=== PATIENT | male | born 1990 | race African-American/Black ===

== ENCOUNTER 2024-06-29 09:51 | Inpatient (IN) ==
[2024-06-29 10:23] VITALS: BMI 25.7
--- NOTE | 2024-06-29 10:31 | DR.ABDMALE ---
HPI Time seen Time Seen by Provider: 06/29/24 10:29 Complaint Chief Complaint Doctors Comments: This patient had a syncopal episode by having a bowel movement on yesterday. He was seen by the medical was staff at the attention center this morning and he was given he was treated with Colace and milk of magnesia and he went to the day room when he also collapsed there he was found to have altered mental status the patient was given Narcan 2 doses there upon arrival in the emergency room he states he has had been nauseated vomiting dizzy and some periumbilical pain he states he had not had a bowel movement in 4 days. Chief Complaint:: [facility] staff reports that yesterday pt had syncopal epidose while straining to have a bowel movemnt. Pt did come to medical this morning with c/o constipation and was treated with colace and milk of magnesia. pt collapsed in dayroom this morning and was found to have altered mental status. Pt received Narcan x 2 doses. Upon arrival to ED pt has c/o 4 days of nausea, vomiting, dizziness and periumbilical tight squeezing constant pain that radiated to the RUQ. Pt also states that he hasn't had a bowel movement in 3-4 days and normally goes every day. COVID-19 Coronavirus risk:travel/contact w/high risk person: No Has patient experienced Coronavirus symptoms: No Mode of arrival Mode of Arrival: Wheelchair Timing Onset of Chief Complaint: 06/29/24 PMH PMH Past Medical History: Yes Past Medical History: Depression Past Surgical History: Yes Surgical History: Ortho Surgery Past Surgical History Comment: right hand surgery Family History History of Family Medical Conditions: Yes Family Medical History: Diabetes Mellitus, Heart Failure and Hypertension Social History Does patient currently use any type of tobacco product: No Have you used tobacco products in the last 12 months: No Type of Tobacco Use: None Does any household member use tobacco: No Alcohol Use: None Do you use any recreational Drugs:: No Lives With: Other Lives Where: [facility] Travel Risk Coronavirus risk:travel/contact w/high risk person: No Has patient experienced Coronavirus symptoms: No Infectious screening In the last 2 months have you had wt loss of >10#?: NO Have you had fever, night sweats or hemotysis?: No Have you traveled outside the country in the last 6 months?: No Isolation: Standard ROS Review of Systems Constitutional: Other (Abdominal pain with nausea vomiting constipation) Eyes: No Symptoms Reported ENTM: No Symptoms Reported Respiratoy: No Symptoms Reported Cardiovascular: No Symptoms Reported Gastrointestinal/Abdominal: Abdominal Pain, Constipation, Nausea and Vomiting Genitourinary: No Symptoms Reported Neurological: Other (syncopal episodes) Musculoskeletal: No Symptoms Reported Integumentary: No Symptoms Reported Hematologic/Lymphatic: No Symptoms Reported Endocrine: No Symptoms Reported Psychiatric: No Symptoms Reported PE Vital Signs Vital Signs: Temp Pulse Resp BP Pulse Ox O2 Del Method 06/29/24 15:00 113 H 20 06/29/24 14:45 113 H 21 06/29/24 14:30 114 H 23 06/29/24 14:15 118 H 21 06/29/24 14:00 120 H 20 06/29/24 13:45 113 H 22 06/29/24 13:37 112 H 33 H 06/29/24 14:45 20 06/29/24 12:00 105 H 21 06/29/24 11:45 108 H 16 98 06/29/24 11:43 112 H 99 06/29/24 11:20 109 H 17 99 06/29/24 11:20 153/84 06/29/24 11:19 112 H 99 06/29/24 10:45 110 H 31 H 06/29/24 10:30 145/82 06/29/24 10:30 104 H 22 06/29/24 10:15 103 H 23 100 06/29/24 10:00 140/81 06/29/24 10:00 100 H 15 100 06/29/24 09:58 104 H 25 H 100 06/29/24 10:13 97.6 F 105 H 20 140/81 99 Room Air General Limitations: No Limitations General Appearance: Alert and In Distress (moderate distress) Head Head Exam: Atraumatic and Normocephalic Eyes Eye exam: Normal Appearance, PERRL and EOMI ENT ENT Exam: Normal Exam, Normal Oropharynx and Normal External Ear Exam Neck Neck Exam: Normal Inspection and Full ROM Chest Chest Inspection: Normal Inspection and Symmetric Chest Wall Rise Respiratory Respiratory Exam: Normal Lung Sounds Bilat Cardiovascular Cardiovascular Exam: Regular Rate and Normal Rhythm Abdominal Exam Abdominal Exam: Normal Inspection, Normal Bowel Sounds, Soft and Distention (mild) Rectal Rectal Exam: Deferred Back Back Exam: Normal Inspection and Full ROM Extremeties Extremities Exam: Normal Inspection Neurologic Neurological Exam: Alert, Oriented X3 and CN II-XII Intact Psychiatric Psychiatric Exam: Flat Affect Skin Skin Exam: Warm, Dry and Intact MDM Differential Diagnosis Differential Diagnosis: Bowel Obstruction, Constipation, Gastroenteritis and Urinary tract infection Other differential diagnosis: vasovagal syncope COURSE Treatment Treatment: This patient remained relatively stable during ER evaluation. We did do a CT scan abdomen pelvis that was negative we did a CT scan of his brain that was negative. We did do metabolic panel that showed his BUN was 61 and crea tinine was 3.78 and his GFR was 34. He did of CBC and his WBC was 12.7 hemoglobin 13.8 hematocrit 40.3 platelets were 324. Since the patient has some acute renal sufficiency we did give the patient a 1 L bolus of normal saline in the ER and will be given an additional bolus of normal saline in the ER. We spoke to the on-call physician Dr. Seaman he agreed to set the patient for admission for further evaluation and treatment of his acute renal insufficiency. This patient was told of the intent to admit and was agreeable to the admission. This patient will also be covered with Zosyn 3.375 g IV every 8 hours. This patient was admitted to a full admit to Dr. Seaman. ROR Labs Reviewed Laboratory Results Reviewed?: Yes 06/29/24 11:17 06/29/24 12:03 Laboratory: WBC 12.7 X10^3/uL (3.6-10.0) H 06/29/24 11:17 RBC 4.97 X10^6/uL (4.7-6.0) 06/29/24 11:17 Hgb 13.8 g/dL (13.5-18.0) 06/29/24 11:17 Hct 40.3 % (42.0-54.0) L 06/29/24 11:17 MCV 81.2 fL (80.0-100.0) 06/29/24 11:17 MCH 27.8 pg (27.0-34.0) 06/29/24 11:17 MCHC 34.2 g/dL (33.0-35.0) 06/29/24 11:17 RDW 12.9 % (11.6-16.5) 06/29/24 11:17 Plt Count 325 X10^3/uL (150.0-450.0) 06/29/24 11:17 MPV 9.1 fL (7.4-11.0) 06/29/24 11:17 Neut % (Auto) 69.9 % (42.0-75.0) 06/29/24 11:17 Lymph % (Auto) 20.1 % (21.0-51.0) L 06/29/24 11:17 [place] % (Auto) 8.2 % (0.0-13.0) 06/29/24 11:17 Eos % (Auto) 1.1 % (0.9-2.9) 06/29/24 11:17 Baso % (Auto) 0.7 % (0.2-1.0) 06/29/24 11:17 Neut # (Auto) 8.9 x10^3/uL (2.2-4.8) H 06/29/24 11:17 Lymph # (Auto) 2.6 X10^3/uL (1.3-2.9) 06/29/24 11:17 [place] # (Auto) 1.0 x10^3/uL (0.3-0.8) H 06/29/24 11:17 Eos # (Auto) 0.1 x10^3/uL (0.0-0.2) 06/29/24 11:17 Baso # (Auto) 0.1 X10^3/uL (0.0-0.1) 06/29/24 11:17 Absolute Nucleated RBC 0.1 /100WBC 06/29/24 11:17 PT 14.2 SECONDS (11.8-14.3) 06/29/24 12:03 INR Target Range - 06/29/24 12:03 INR 1.12 (0.8-1.3) 06/29/24 12:03 Sodium 131 mmol/L (136-145) L 06/29/24 12:03 Corrected Sodium TNP 06/29/24 12:03 Potassium 3.7 mmol/L (3.5-5.1) 06/29/24 12:03 Chloride 93 mmol/L (98-107) L 06/29/24 12:03 Carbon Dioxide 21.9 mmol/L (21-32) 06/29/24 12:03 BUN 61 mg/dL (7-18) H 06/29/24 12:03 Creatinine 2.78 mg/dL (0.70-1.30) H 06/29/24 12:03 Est GFR (MDRD) Af Amer 34 (>60) L 06/29/24 12:03 Est GFR (MDRD) Non-Af 28 (>60) L 06/29/24 12:03 Glucose 104 mg/dL (65-99) H 06/29/24 12:03 Calcium 9.6 mg/dL (8.5-10.1) 06/29/24 12:03 Corrected Calcium TNP 06/29/24 12:03 Total Bilirubin 1.30 mg/dL (0.2-1.0) H 06/29/24 12:03 AST 106 Units/L (15-37) H 06/29/24 12:03 ALT 67 Units/L (12-78) 06/29/24 12:03 Alkaline Phosphatase 63 Units/L (46-116) 06/29/24 12:03 Total Protein 9.1 g/dL (6.4-8.2) H 06/29/24 12:03 Albumin 4.7 g/dL (3.4-5.0) 06/29/24 12:03 Globulin 4.4 g/dL (2.5-4.5) 06/29/24 12:03 Albumin/Globulin Ratio 1.1 Ratio (1.1-2.1) 06/29/24 12:03 Specimen Type Random urine 06/29/24 11:10 Urine Color Straw (YELLOW) 06/29/24 11:10 Urine Appearance Clear (CLEAR) 06/29/24 11:10 Urine pH 7.0 (5.0 - 8.0) 06/29/24 11:10 Ur Specific [place] 1.010 (1.000-1.030) 06/29/24 11:10 Urine Protein Negative (NEGATIVE) 06/29/24 11:10 Urine Glucose (UA) Negative (NEGATIVE) 06/29/24 11:10 Urine Ketones Negative (NEGATIVE) 06/29/24 11:10 Urine Blood Negative (NEGATIVE) 06/29/24 11:10 Urine Nitrite Negative (NEGATIVE) 06/29/24 11:10 Urine Bilirubin Negative (NEGATIVE) 06/29/24 11:10 Urine Urobilinogen Normal (NORMAL) 06/29/24 11:10 Ur Leukocyte Esterase Negative (NEGATIVE) 06/29/24 11:10 Opioid Opioid Risk Tool Age (Marcello box if 16-45): Yes History of Preadolescent Sexual Abuse: No Total: 1 Total Score Risk Category: Low Risk Copyright: Billy JENKINS predicting aberrant behaviors Discharge Plan Diagnosis Discharge Problem: Acute renal insufficiency, Dehydration Discharge Plan Patient Disposition: ADMITTED INPATIENT Condition: Stable Prescriptions: No Action docusate sodium [Colace] 100 mg Capsule 100 mg PO BID Health Concerns: Post Hospitalization: new medications and changes needed to prevent readmission or further decline. Pt educated and given instructions on all concerns. Plan of Treatment: Continue with present treatment and follow up plan. Pt is to keep follow up appointment as instructed and take medications as ordered. Orders to Discharge Patient Discharge Orders: Discharge (Routine); Ordered 06/29/24 Ordered By: Armani Murry Transfer (Routine); Ordered 06/29/24 Ordered By: Armani Murry Follow ups/Referrals Follow ups/Referrals: NFD,None [Primary Care Provider] - 3 days Instructions Stand Alone Forms: Post Hospital Follow Up Care
[2024-06-29 11:31] LABS: BASOPHILS # (AUTO) 0.1 X10^3/uL (0.0-0.1); BASOPHILS % (AUTO) 0.7 % (0.2-1.0); EOSINOPHILS # (AUTO) 0.1 x10^3/uL (0.0-0.2); EOSINOPHILS % (AUTO) 1.1 % (0.9-2.9); HEMATOCRIT 40.3 % (42.0-54.0); HEMOGLOBIN 13.8 g/dL (13.5-18.0); LYMPHOCYTES # (AUTO) 2.6 X10^3/uL (1.3-2.9); LYMPHOCYTES % (AUTO) 20.1 % (21.0-51.0); MEAN CORPUSCULAR HEMOGLOBIN 27.8 pg (27.0-34.0); MEAN CORPUSCULAR HGB CONC 34.2 g/dL (33.0-35.0); MEAN CORPUSCULAR VOLUME 81.2 fL (80.0-100.0); MEAN PLATELET VOLUME 9.1 fL (7.4-11.0); MONOCYTES % (AUTO) 8.2 % (0.0-13.0); NEUTROPHILS # (AUTO) 8.9 x10^3/uL (2.2-4.8); NEUTROPHILS % (AUTO) 69.9 % (42.0-75.0); PLATELET COUNT 325 X10^3/uL (150.0-450.0); RED BLOOD COUNT 4.97 X10^6/uL (4.7-6.0); RED CELL DISTRIBUTION WIDTH 12.9 % (11.6-16.5); WHITE BLOOD COUNT 12.7 X10^3/uL (3.6-10.0)
[2024-06-29 11:38] LABS: INR 1.12 (0.8-1.3)
[2024-06-29 11:41] LABS: BILIRUBIN,URINE NEGATIVE (NEGATIVE); BLOOD/HEMOGLOBIN,URINE NEGATIVE (NEGATIVE); GLUCOSE, URINE NEGATIVE (NEGATIVE); KETONES,URINE NEGATIVE (NEGATIVE); LEUKOCYTE ESTERASE ,URINE NEGATIVE (NEGATIVE); NITRITES,URINE NEGATIVE (NEGATIVE); PROTEIN,URINE NEGATIVE (NEGATIVE); UROBILINOGEN,URINE NORMAL (NORMAL)
[2024-06-29 11:43] LABS: APPEARANCE,URINE CLEAR (CLEAR); COLOR,URINE STRAW (YELLOW)
[2024-06-29 12:32] LABS: ALANINE AMINOTRANSFERASE 67 Units/L (12-78); ALBUMIN 4.7 g/dL (3.4-5.0); ALKALINE PHOSPHATASE 63 Units/L (46-116); ASPARTATE AMINO TRANSFERASE 106 Units/L (15-37); BLOOD UREA NITROGEN 61 mg/dL (7-18); CALCIUM 9.6 mg/dL (8.5-10.1); CARBON DIOXIDE 21.9 mmol/L (21-32); CHLORIDE 93 mmol/L (98-107); CREATININE 2.78 mg/dL (0.70-1.30); GLUCOSE 104 mg/dL (65-99); POTASSIUM 3.7 mmol/L (3.5-5.1); SODIUM 131 mmol/L (136-145); TOTAL PROTEIN 9.1 g/dL (6.4-8.2); eGFR NON BLACK RACES 28 (>60)
--- NOTE | 2024-06-29 12:53 | CT ---
EXAM:BRAIN W/O CONHISTORY:SYNCOPAL EPISDOE ;COMPARISON:None.TECHNIQUE:Axial CT of the head is performed from the base of the skull through the vertex without contrast . Multiplaner reformats are generated from the original axial data.FINDINGS:There is no evidence of an acute intracranial hemorrhage or extra-axial fluid collection. There is no mass effect, midline shift, or evidence of cerebral edema. The ventricular size is normal. Cortical toro-white matter differentiation is maintained without sulcal effacement. There is no evidence of an acute stage, large artery territorial infarction.The calvarium is intact. The paranasal sinuses and mastoid air cells are predominantly clear aside from mild polypoid mucosal thickening of the bilateral maxillary sinus chambers. No air-fluid levels are demonstrated. The cerebellar tonsils are normal in position. No suprasellar asymmetry is identified.IMPRESSION:No acute intracranial abnormalitiesRadiation dose reduction was achieved through individualized adjustment of kVP and/or mA, through adaptive statistical iterative reconstruction, and/or through automated tube current modulation.THIS IS AN ELECTRONICALLY VERIFIED FINAL REPORT06/29/2024 12:49 PM - Electronically signed by Erick Chun MD
--- NOTE | 2024-06-29 12:56 | CT ---
EXAM:ABDOMEN/PELVIS W/O CONHISTORY:ABD PAIN, NAUSEA, VOMITING;COMPARISON:None.TECHNIQUE:Multi ple axial images of the abdomen and pelvis were obtained from the lung bases to the pubic symphysis without the administration of IV contrast. Dose reduction techniques including Automated Exposure Control (AEC) and adjustment of mA and kV were utilized.FINDINGS:Study quality is degraded by patient associated motion artifact.The visualized portions of the lung bases are clear.The liver is normal in attenuation for noncontrast exam. There is no biliary dilatation identified.No radiopaque gallstones or acute inflammatory changes of the gallbladder.The spleen is average size.No inflammatory changes of the pancreas are identified.The adrenal glands are symmetric in size and overall morphology.No radiopaque renal calculi or evidence of obstruction of the right or left kidney. The bilateral ureters are decompressed to the level of the urinary bladder.No significant mesenteric lymphadenopathy or stranding can be observed. No free fluid or free air is seen within the abdomen.The aorta is normal in caliber.No bowel wall thickening or bowel dilatation is present. No aggressively thickened or acutely inflamed bowel segments are identified, within limitations of a noncontrast CT.The appendix is normal in caliber and without inflammatory change.The urinary bladder is grossly unremarkable.Normal-sized prostate gland. No pathologic free fluid or lymphadenopathy associated with pelvis. Tiny fat containing periumbilical hernia site without complication.No aggressive bony lesions or acute osseous abnormalities. Mild scoliotic curvature observed. Chronic superior endplate Schmorl's node defect at T12 is observed.IMPRESSION:No acute abnormalities identified, within limitations of a noncontrast CT degraded by motion artifact.THIS IS AN ELECTRONICALLY VERIFIED FINAL REPORT06/29/2024 12:53 PM - Electronically signed by Erick Chun MD
[2024-06-29] MEDS: NS 1,000 ML IV 1,000 ML IV ONE (13:38)
[2024-06-29] MEDS ORDERED: ZOFRAN INJ 4 MG VIAL IVP PRN (16:12)
[2024-06-29] MEDS ORDERED: NS 250 ML IV 25 ML IV PRN (16:12)
[2024-06-29] MEDS: ZOSYN VIAL 2.25 GRAMS 2.25 G in NS 100 ML IV 100 ML IV SCH (16:44)
[2024-06-29] MEDS ORDERED: ZOSYN VIAL 3.375 GRAMS 3.375 G in NS 100 ML IV 100 ML IV SCH (17:00)
[2024-06-29] MEDS: NS 1,000 ML IV 1,000 ML ONE (17:06)
[2024-06-29] MEDS: D5 NS 1,000 ML IV 1,000 ML IV SCH (17:52)
[2024-06-30] MEDS: ZOSYN VIAL 3.375 GRAMS 3.375 G in NS 100 ML IV 100 ML IV SCH (00:14)
[2024-06-30] MEDS: NS 250 ML IV 25 ML IV PRN (00:15)
[2024-06-30 06:18] LABS: BASOPHILS # (AUTO) 0.1 X10^3/uL (0.0-0.1); BASOPHILS % (AUTO) 0.9 % (0.2-1.0); EOSINOPHILS # (AUTO) 0.4 x10^3/uL (0.0-0.2); EOSINOPHILS % (AUTO) 4.6 % (0.9-2.9); HEMATOCRIT 33.6 % (42.0-54.0); HEMOGLOBIN 11.5 g/dL (13.5-18.0); LYMPHOCYTES # (AUTO) 1.8 X10^3/uL (1.3-2.9); LYMPHOCYTES % (AUTO) 20.7 % (21.0-51.0); MEAN CORPUSCULAR HEMOGLOBIN 27.7 pg (27.0-34.0); MEAN CORPUSCULAR HGB CONC 34.2 g/dL (33.0-35.0); MEAN CORPUSCULAR VOLUME 81.2 fL (80.0-100.0); MEAN PLATELET VOLUME 8.8 fL (7.4-11.0); MONOCYTES # (AUTO) 0.9 x10^3/uL (0.3-0.8); MONOCYTES % (AUTO) 10.4 % (0.0-13.0); NEUTROPHILS # (AUTO) 5.6 x10^3/uL (2.2-4.8); NEUTROPHILS % (AUTO) 63.4 % (42.0-75.0); PLATELET COUNT 247 X10^3/uL (150.0-450.0); RED BLOOD COUNT 4.14 X10^6/uL (4.7-6.0); RED CELL DISTRIBUTION WIDTH 13.1 % (11.6-16.5); WHITE BLOOD COUNT 8.7 X10^3/uL (3.6-10.0)
[2024-06-30 06:25] LABS: ALBUMIN 3.3 g/dL (3.4-5.0); CALCIUM 8.3 mg/dL (8.5-10.1); CARBON DIOXIDE 28.4 mmol/L (21-32); COR CA(FOR HYPOALB) 8.9 mg/dL (8.5-10.1); CREATININE 1.72 mg/dL (0.70-1.30); POTASSIUM 4.5 mmol/L (3.5-5.1); TOTAL PROTEIN 6.8 g/dL (6.4-8.2)
[2024-06-30] MEDS: MILK OF MAGNESIA PO SCH (12:13)
[2024-06-30] MEDS: COLACE CAP 100 MG PO SCH (12:14)
--- NOTE | 2024-06-30 13:49 | DR.H&P ---
H&P History & Physical for Day of: H&P Date: 06/30/24 Chief Complaint Chief Complaint: syncope History of Present Illness History of Present Illness: Patient seen for admission rounding with nurse and attendance at bedside. Patient was at the [facility] when he experienced 2 syncopal episodes. 1 was after a bowel movement the other was in the dayroom area. The first syncopal episode occurred after a BM. He was evaluated by medical staff there and placed on stool softeners and milk of magnesia. He then experienced another syncopal episode and was sent here. He is experienced 4 to 5 days of nausea, vomiting, and decreased p.o. intake. In the ER he was found to have an acute kidney injury with leukocytosis. This morning his serum creatinine is improved with resolution of the leukocytosis. He also dropped his platelet count and hemoglobin. Vitals have improved. He reports he has nausea and vomiting are much improved and he wants to eat now. CT brain and abdomen/pelvis were benign. Vitals have been stable. ROS: 12 point review of systems negative except as noted in HPI. Vitals reviewed. PE: Well-developed, well-nourished male in no acute distress. Head NCAT. X recommends grossly normal. Hearing intact conversation. CN II through XII grossly normal. Heart regular rate and rhythm. Lungs are clear with good respiratory effort and speaking in full sentences. Belly is soft, nontender, nondistended with bowel sounds present. No organomegaly appreciated. Skin appropriate color and turgor. Moves all extremities equally well with no edema. Mood and affect appropriate. Past Medical History Past Medical History: Depression Past Surgical History Surgical History: Ortho Surgery Family History Family Medical History: Diabetes Mellitus, Heart Failure and Hypertension Social History Does patient currently use any type of tobacco product: No Have you used tobacco products in the last 12 months: No Type of Tobacco Use: None Does any household member use tobacco: No Alcohol Use: None Medications Home Medications: Home Medications Medication Instructions Recorded Confirmed Type docusate sodium 100 mg capsule 100 mg PO BID 06/29/24 06/29/24 History (Colace) Allergies Allergies Allergy/AdvReac Type Severity Reaction Status Date / Time bee pollen Allergy Verified 06/29/24 10:25 insect venom Allergy Verified 06/29/24 10:25 poison zay extract Allergy Verified 06/29/24 10:25 poison oak extract Allergy Verified 06/29/24 10:25 poison sumac extract Allergy Verified 06/29/24 10:25 Labs 06/30/24 05:58 06/30/24 05:58 Labs: Laboratory WBC 8.7 X10^3/uL (3.6-10.0) 06/30/24 05:58 RBC 4.14 X10^6/uL (4.7-6.0) L 06/30/24 05:58 Hgb 11.5 g/dL (13.5-18.0) L D 06/30/24 05:58 Hct 33.6 % (42.0-54.0) L 06/30/24 05:58 MCV 81.2 fL (80.0-100.0) 06/30/24 05:58 MCH 27.7 pg (27.0-34.0) 06/30/24 05:58 MCHC 34.2 g/dL (33.0-35.0) 06/30/24 05:58 RDW 13.1 % (11.6-16.5) 06/30/24 05:58 Plt Count 247 X10^3/uL (150.0-450.0) 06/30/24 05:58 MPV 8.8 fL (7.4-11.0) 06/30/24 05:58 Neut % (Auto) 63.4 % (42.0-75.0) 06/30/24 05:58 Lymph % (Auto) 20.7 % (21.0-51.0) L 06/30/24 05:58 [place] % (Auto) 10.4 % (0.0-13.0) 06/30/24 05:58 Eos % (Auto) 4.6 % (0.9-2.9) H 06/30/24 05:58 Baso % (Auto) 0.9 % (0.2-1.0) 06/30/24 05:58 Neut # (Auto) 5.6 x10^3/uL (2.2-4.8) H 06/30/24 05:58 Lymph # (Auto) 1.8 X10^3/uL (1.3-2.9) 06/30/24 05:58 [place] # (Auto) 0.9 x10^3/uL (0.3-0.8) H 06/30/24 05:58 Eos # (Auto) 0.4 x10^3/uL (0.0-0.2) H 06/30/24 05:58 Baso # (Auto) 0.1 X10^3/uL (0.0-0.1) 06/30/24 05:58 Absolute Nucleated RBC 0.1 /100WBC 06/30/24 05:58 PT 14.2 SECONDS (11.8-14.3) 06/29/24 12:03 INR Target Range - 06/29/24 12:03 INR 1.12 (0.8-1.3) 06/29/24 12:03 Sodium 137 mmol/L (136-145) 06/30/24 05:58 Corrected Sodium 137 mmol/L (136-145) 06/30/24 05:58 Potassium 4.5 mmol/L (3.5-5.1) 06/30/24 05:58 Chloride 103 mmol/L (98-107) 06/30/24 05:58 Carbon Dioxide 28.4 mmol/L (21-32) 06/30/24 05:58 BUN 37 mg/dL (7-18) H 06/30/24 05:58 Creatinine 1.72 mg/dL (0.70-1.30) H 06/30/24 05:58 Est GFR (MDRD) Af Amer 59 (>60) 06/30/24 05:58 Est GFR (MDRD) Non-Af 49 (>60) L 06/30/24 05:58 Glucose 118 mg/dL (65-99) H 06/30/24 05:58 Calcium 8.3 mg/dL (8.5-10.1) L 06/30/24 05:58 Corrected Calcium 8.9 mg/dL (8.5-10.1) 06/30/24 05:58 Total Bilirubin 1.20 mg/dL (0.2-1.0) H 06/30/24 05:58 AST 74 Units/L (15-37) H 06/30/24 05:58 ALT 50 Units/L (12-78) 06/30/24 05:58 Alkaline Phosphatase 45 Units/L (46-116) L 06/30/24 05:58 Total Protein 6.8 g/dL (6.4-8.2) 06/30/24 05:58 Albumin 3.3 g/dL (3.4-5.0) L 06/30/24 05:58 Globulin 3.5 g/dL (2.5-4.5) 06/30/24 05:58 Albumin/Globulin Ratio 0.9 Ratio (1.1-2.1) L 06/30/24 05:58 Specimen Type Random urine 06/29/24 11:10 Urine Color Straw (YELLOW) 06/29/24 11:10 Urine Appearance Clear (CLEAR) 06/29/24 11:10 Urine pH 7.0 (5.0 - 8.0) 06/29/24 11:10 Ur Specific [place] 1.010 (1.000-1.030) 06/29/24 11:10 Urine Protein Negative (NEGATIVE) 06/29/24 11:10 Urine Glucose (UA) Negative (NEGATIVE) 06/29/24 11:10 Urine Ketones Negative (NEGATIVE) 06/29/24 11:10 Urine Blood Negative (NEGATIVE) 06/29/24 11:10 Urine Nitrite Negative (NEGATIVE) 06/29/24 11:10 Urine Bilirubin Negative (NEGATIVE) 06/29/24 11:10 Urine Urobilinogen Normal (NORMAL) 06/29/24 11:10 Ur Leukocyte Esterase Negative (NEGATIVE) 06/29/24 11:10 Physical Exam Vital Signs: Vital Signs Temperature 97.6 F Temperature 98.5 F Pulse Rate [Brachial] 89 Respiratory Rate 18 Blood Pressure [Right Arm] 114/58 Blood Pressure [Right Arm] 120/60 O2 Sat by Pulse Oximetry 99 O2 Sat by Pulse Oximetry 98 Assessment/Plan (1) Acute renal insufficiency: Narrative Support Text: Improving. Continue IVF's. Recheck in the morning. Status: Acute (2) Dehydration: Narrative Support Text: P.o. and IV repletion. Appears to be improving. Status: Acute (3) Chronic idiopathic constipation: Narrative Support Text: Monitor. May be secondary to a viral illness or may be the source of these problems. Status: Acute (4) Hyperbilirubinemia: Narrative Support Text: AST is also elevated. Both are improving. May be Gilbert syndrome vs complication of recent illness vs medication vs other. Will monitor. Status: Acute
[2024-06-30] MEDS: MILK OF MAGNESIA ONE (14:53)
[2024-07-01 07:21] LABS: BASOPHILS # (AUTO) 0.1 X10^3/uL (0.0-0.1); BASOPHILS % (AUTO) 0.9 % (0.2-1.0); EOSINOPHILS # (AUTO) 0.3 x10^3/uL (0.0-0.2); HEMATOCRIT 32.5 % (42.0-54.0); LYMPHOCYTES # (AUTO) 1.9 X10^3/uL (1.3-2.9); MEAN CORPUSCULAR HEMOGLOBIN 27.9 pg (27.0-34.0); MEAN CORPUSCULAR HGB CONC 33.7 g/dL (33.0-35.0); MEAN CORPUSCULAR VOLUME 82.7 fL (80.0-100.0); MEAN PLATELET VOLUME 8.7 fL (7.4-11.0); MONOCYTES # (AUTO) 0.6 x10^3/uL (0.3-0.8); MONOCYTES % (AUTO) 9.8 % (0.0-13.0); NEUTROPHILS # (AUTO) 3.7 x10^3/uL (2.2-4.8); NEUTROPHILS % (AUTO) 55.3 % (42.0-75.0); PLATELET COUNT 225 X10^3/uL (150.0-450.0); RED BLOOD COUNT 3.93 X10^6/uL (4.7-6.0); WHITE BLOOD COUNT 6.6 X10^3/uL (3.6-10.0)
[2024-07-01 07:34] LABS: ALANINE AMINOTRANSFERASE 48 Units/L (12-78); ALBUMIN 2.9 g/dL (3.4-5.0); ALKALINE PHOSPHATASE 36 Units/L (46-116); ASPARTATE AMINO TRANSFERASE 52 Units/L (15-37); BLOOD UREA NITROGEN 17 mg/dL (7-18); CARBON DIOXIDE 27.8 mmol/L (21-32); CHLORIDE 109 mmol/L (98-107); COR CA(FOR HYPOALB) 8.9 mg/dL (8.5-10.1); CREATININE 1.31 mg/dL (0.70-1.30); GLUCOSE 103 mg/dL (65-99); POTASSIUM 4.8 mmol/L (3.5-5.1); SODIUM 142 mmol/L (136-145); TOTAL PROTEIN 6.3 g/dL (6.4-8.2); eGFR NON BLACK RACES > 60 (>60)
[2024-07-01 08:38] VITALS: O2SAT 100
[2024-07-01 13:06] VITALS: BP 126/68; PULSE 75; RESP 18; TEMP 97.5
--- NOTE | 2024-07-01 14:27 | PCM.DCPLAN ---
DISCHARGE SUMMARY Admission Date Date of Admission: 06/29/24 Discharge Date Discharge Date: 07/01/24 Admission Diagnoses (1) Acute renal insufficiency: Status: Acute (2) Dehydration: Status: Acute (3) Chronic idiopathic constipation: Status: Acute (4) Hyperbilirubinemia: Status: Acute Discharge Medications Discharge Medications: Home Medication List docusate sodium 100 mg capsule (Colace) 100 mg PO BID 06/29/24 [History] Prescriptions: Hospital Course Vital Signs: Vital Signs Temperature 97.5 F Temperature 97.9 F Pulse Rate [Brachial] 75 Pulse Rate [Brachial] 70 Respiratory Rate 18 Respiratory Rate 20 Blood Pressure [Right Arm] 126/68 Blood Pressure [Right Arm] 120/62 O2 Sat by Pulse Oximetry 100 O2 Sat by Pulse Oximetry 100 Latest Lab Results: Laboratory Last Values WBC 6.6 X10^3/uL (3.6-10.0) 07/01/24 07:08 RBC 3.93 X10^6/uL (4.7-6.0) L 07/01/24 07:08 Hgb 11.0 g/dL (13.5-18.0) L 07/01/24 07:08 Hct 32.5 % (42.0-54.0) L 07/01/24 07:08 MCV 82.7 fL (80.0-100.0) 07/01/24 07:08 MCH 27.9 pg (27.0-34.0) 07/01/24 07:08 MCHC 33.7 g/dL (33.0-35.0) 07/01/24 07:08 RDW 13.0 % (11.6-16.5) 07/01/24 07:08 Plt Count 225 X10^3/uL (150.0-450.0) 07/01/24 07:08 MPV 8.7 fL (7.4-11.0) 07/01/24 07:08 Neut % (Auto) 55.3 % (42.0-75.0) 07/01/24 07:08 Lymph % (Auto) 29.0 % (21.0-51.0) 07/01/24 07:08 [place] % (Auto) 9.8 % (0.0-13.0) 07/01/24 07:08 Eos % (Auto) 5.0 % (0.9-2.9) H 07/01/24 07:08 Baso % (Auto) 0.9 % (0.2-1.0) 07/01/24 07:08 Neut # (Auto) 3.7 x10^3/uL (2.2-4.8) 07/01/24 07:08 Lymph # (Auto) 1.9 X10^3/uL (1.3-2.9) 07/01/24 07:08 [place] # (Auto) 0.6 x10^3/uL (0.3-0.8) 07/01/24 07:08 Eos # (Auto) 0.3 x10^3/uL (0.0-0.2) H 07/01/24 07:08 Baso # (Auto) 0.1 X10^3/uL (0.0-0.1) 07/01/24 07:08 Absolute Nucleated RBC 0.1 /100WBC 07/01/24 07:08 PT 14.2 SECONDS (11.8-14.3) 06/29/24 12:03 INR Target Range - 06/29/24 12:03 INR 1.12 (0.8-1.3) 06/29/24 12:03 Sodium 142 mmol/L (136-145) 07/01/24 07:08 Corrected Sodium TNP 07/01/24 07:08 Potassium 4.8 mmol/L (3.5-5.1) 07/01/24 07:08 Chloride 109 mmol/L (98-107) H 07/01/24 07:08 Carbon Dioxide 27.8 mmol/L (21-32) 07/01/24 07:08 BUN 17 mg/dL (7-18) 07/01/24 07:08 Creatinine 1.31 mg/dL (0.70-1.30) H 07/01/24 07:08 Est GFR (MDRD) Af Amer > 60 (>60) 07/01/24 07:08 Est GFR (MDRD) Non-Af > 60 (>60) 07/01/24 07:08 Glucose 103 mg/dL (65-99) H 07/01/24 07:08 Calcium 8.0 mg/dL (8.5-10.1) L 07/01/24 07:08 Corrected Calcium 8.9 mg/dL (8.5-10.1) 07/01/24 07:08 Total Bilirubin 0.80 mg/dL (0.2-1.0) 07/01/24 07:08 AST 52 Units/L (15-37) H 07/01/24 07:08 ALT 48 Units/L (12-78) 07/01/24 07:08 Alkaline Phosphatase 36 Units/L (46-116) L 07/01/24 07:08 Total Protein 6.3 g/dL (6.4-8.2) L 07/01/24 07:08 Albumin 2.9 g/dL (3.4-5.0) L 07/01/24 07:08 Globulin 3.4 g/dL (2.5-4.5) 07/01/24 07:08 Albumin/Globulin Ratio 0.9 Ratio (1.1-2.1) L 07/01/24 07:08 Specimen Type Random urine 06/29/24 11:10 Urine Color Straw (YELLOW) 06/29/24 11:10 Urine Appearance Clear (CLEAR) 06/29/24 11:10 Urine pH 7.0 (5.0 - 8.0) 06/29/24 11:10 Ur Specific [place] 1.010 (1.000-1.030) 06/29/24 11:10 Urine Protein Negative (NEGATIVE) 06/29/24 11:10 Urine Glucose (UA) Negative (NEGATIVE) 06/29/24 11:10 Urine Ketones Negative (NEGATIVE) 06/29/24 11:10 Urine Blood Negative (NEGATIVE) 06/29/24 11:10 Urine Nitrite Negative (NEGATIVE) 06/29/24 11:10 Urine Bilirubin Negative (NEGATIVE) 06/29/24 11:10 Urine Urobilinogen Normal (NORMAL) 06/29/24 11:10 Ur Leukocyte Esterase Negative (NEGATIVE) 06/29/24 11:10 Hospital Course: Patient admitted with 1 week history of nausea, vomiting, diarrhea and abdominal pain. That was starting to improve but he had had very poor p.o. intake. He experienced 2 syncopal episodes within a 24-hour period. He was sent here for evaluation and found to have an acute kidney injury. He responded very well to aggressive IV hydration. He has been tolerating a regular diet the last 2 days. Belly pain is resolved. No further nausea, vomiting, or diarrhea. He has been discharged back to the facility in improved, stable condition with attendance.
== END 2024-07-01 16:10 | disposition home or self-care (01) | DRG 699 ==
LOC: ER 09:51 → MED/SURG 16:12
PROVIDERS: ADMIT Family Medicine; ATTEND Family Medicine
DX: R11.2 Nausea with vomiting, unspecified; R55 Syncope and collapse; R42 Dizziness and giddiness; E86.0 Dehydration; E87.1 Hypo-osmolality and hyponatremia; R10.11 Right upper quadrant pain; E80.6 Other disorders of bilirubin metabolism; K59.04 Chronic idiopathic constipation; N28.9 Disorder of kidney and ureter, unspecified